=== PATIENT | female | born 1990 | race Caucasian/White ===

== ENCOUNTER 2022-05-22 14:48 | Emergency (ER) | payer BC, SELFPAY ==
[2022-05-22 14:50] VITALS: BP 137/91; PULSE 83; RESP 16; TEMP 36.6; O2SAT 99; BMI 42.0
[2022-05-22 14:53] VITALS: BP 137/91; PULSE 83; RESP 16; TEMP 36.6; O2SAT 99
--- NOTE | 2022-05-22 15:31 | EDS_ITS ---
HPI HPI - GI History of Present Illness Chief Complaint: Nausea/Vomiting/Diarrhea Informant: patient Abdominal Pain/Flank Pain Onset: Weeks (2) Context: Gradual Onset Timing: Intermittent Quality: Sharp Location: RUQ Worsened by: Food Relieved by: Nothing Nausea/Vomiting/Emesis GI Symptom: Positive for Nausea and Vomiting Quality: Positive for Nonbilious; Negative for Blood streaks, Coffee ground or Hematemesis Diarrhea/Melena/Hematochezia GI Symptom: Positive for Diarrhea; Negative for Melena or Hematochezia Associated Symptoms Associated Symptoms: Negative for Dysuria, Frequency or Hematuria LMP: Last month Narrative Narrative: Patient presents with right upper quadrant abdominal pain that has been intermittent for the past 2 weeks. Patient states it is worse after she eats. Patient states she has been to the emergency department at another facility twice in the last 2 weeks. Patient states her primary care physician told her to come to the emergency department to be admitted to the hospital. Patient states she has a HIDA scan scheduled in 3 days. Patient has not seen a surgeon for this. Patient states the pain radiates from her right upper quadrant into her back. Patient denies any hematemesis or coffee-ground emesis. Patient denies any melena or hematochezia. Patient denies any urinary complaints. PFSH PFSH Home Medications fexofenadine-pseudoephedrine ER 180 mg-240 mg tablet,ext.release 24 hr (Marah- D 24 Hour) 1 tab.sr PO DAILY 07/21/14 [History Last Taken Unknown] alprazolam 0.5 mg tablet 1 tab PO TID PRN Anxiety 05/22/22 [History Last Taken Unknown] hydrocodone-acetaminophen 5-325mg 5mg-325mg 1 tab PO Q6H PRN PRN Pain 3 days #10 TABLETS 05/22/22 [Rx Last Taken Unknown] ondansetron 4 mg disintegrating tablet 4 mg PO Q8H PRN PRN Nausea #10 tabs 05/22/22 [Rx Last Taken Unknown] rizatriptan 10 mg tablet 1 tab PO DAILY 05/22/22 [History Last Taken Unknown] varenicline 0.5 mg tablet 1 tab PO DAILY 05/22/22 [History Last Taken Unknown] venlafaxine 75 mg capsule,extended release 24 hr 1 cap PO DAILY 05/22/22 [History Last Taken Unknown] Allergy/AdvReac Type Severity Reaction Status Date / Time Sulfa (Sulfonamide Allergy Hives Verified 05/22/22 14:54 Antibiotics) escitalopram oxalate AdvReac Nausea/Vom/ Verified 05/22/22 14:54 [From Lexapro] Diarrhea Surgical History (Updated 05/22/22 @ 15:[address] Abdi Ford, ) Hx of tonsillectomy Social History Smoking Status: Never smoker ROS ROS ED Constitutional Constitutional ED: Denies chills or fever(s) Eyes Eyes: Denies blurry vision or change in vision ENT ENT ED: Denies rhinorrhea or sore throat Cardiovascular Cardiovascular: Denies chest pain or palpitations Respiratory/Chest Respiratory/Chest: Denies cough or dyspnea Gastrointestinal Gastrointestinal: Reports abdominal pain, diarrhea, nausea and vomiting Genitourinary Genitourinary ED: Denies dysuria or hematuria Musculoskeletal Musculoskeletal: Reports back pain Integumentary Denies abscess or rash Neurologic Neurologic: Reports headache(s); Denies weakness Allergic/Immunologic Allergic/Immunologic ED: Denies mouth swelling or urticaria EXAM Physical Exam Const Vital Signs: 05/22/22 14:50 05/22/22 14:53 Temperature 97.9 F 97.9 F Temperature Source Temporal Temporal Pulse Rate 83 83 Respiratory Rate 16 16 Blood Pressure 137/91 H 137/91 H Blood Pressure Mean 106 106 Pulse Ox 99 99 Oxygen Delivery Method Room Air Room Air Positive well nourished, well developed and obese General Appearance ED: well developed and NAD Nutritional Appearance: obese HEENT Reports moist mucous membranes Neck supple and no JVD Resp normal respiratory effort and clear to auscultation bilaterally Cardio regular rate, regular rhythm and no murmurs GI normal to inspection, nondistended, normoactive bowel sounds Palpation: soft and tender RUQ and Trimble's sign; Negative for guarding or rebound tenderness present Extremity normal to inspection General Extremety ED: Negative for edema or tenderness General Extremity: Negative for edema Neuro oriented x3, CN's II-XII intact bilaterally and no sensory deficits noted Sensorium / Orientation: alert Motor Exam: strength 5/5 throughout Psych mental status grossly normal Skin no rashes or lesions noted MDM MDM MDM Narrative Medical decision making narrative: Patient was given IV fluids, morphine, and Zofran. CBC was within normal limits. Comprehensive metabolic profile was normal. Lipase was normal. Serum hCG was negative. Urinalysis was obtained. There is no evidence of urinary tract infection or hematuria. Gallbladder ultrasound was obtained. There is no evidence of cholecystitis or cholelithiasis. This was interpreted by the radiologist and reviewed by myself. Patient is feeling better on reevaluation. Patient was instructed to follow-up with her primary care physician as scheduled. Patient was instructed to follow-up with her outpatient HIDA scan as scheduled. Patient was given referral to Dr. Dobson for general surgery. Patient understood and was agreeable with the plan. All questions were answered. Lab Data Attestation: I reviewed the patient's lab results. Labs: Laboratory Results - last 24 hr 05/22/22 05/22/22 05/22/22 15:15 15:15 15:15 WBC 8.5 RBC 4.47 Hgb 13.2 Hct 39.6 MCV 88.6 MCH 29.5 MCHC 33.3 RDW Std Deviation 41.5 RDW Coeff of [place] 12.7 Plt Count 295 MPV 10.5 Immature Gran % (Auto) 0.200 Neut % (Auto) 63.1 Lymph % (Auto) 24.1 [place] % (Auto) 6.0 Eos % (Auto) 5.9 H Baso % (Auto) 0.7 Absolute Neuts (auto) 5.4 Absolute Lymphs (auto) 2.06 Nucleated RBC % 0 Sodium 138 Potassium 3.9 Chloride 109 H Carbon Dioxide 25.0 Anion Gap 4 L BUN 7 Creatinine 0.86 Estim Creat Clear Calc 91.33 Est GFR (MDRD) Af Amer 98 Est GFR (MDRD) Non-Af 81 BUN/Creatinine Ratio 8.1 L Glucose 85 Calcium 9.3 Total Bilirubin 1.10 H AST 34 ALT 46 Alkaline Phosphatase 66 Total Protein 7.1 Albumin 3.9 Globulin 3.2 Albumin/Globulin Ratio 1.2 Lipase 93 Serum , Qual NEGATIVE Urine Color Urine Clarity Urine pH Ur Specific [place] Urine Protein Urine Glucose (UA) Urine Ketones Urine Occult Blood Urine Nitrite Urine Bilirubin Urine Urobilinogen Ur Leukocyte Esterase Urine RBC Urine WBC Ur Squamous Epith Cells Urine Bacteria Urine Mucus 05/22/22 16:34 WBC RBC Hgb Hct MCV MCH MCHC RDW Std Deviation RDW Coeff of [place] Plt Count MPV Immature Gran % (Auto) Neut % (Auto) Lymph % (Auto) [place] % (Auto) Eos % (Auto) Baso % (Auto) Absolute Neuts (auto) Absolute Lymphs (auto) Nucleated RBC % Sodium Potassium Chloride Carbon Dioxide Anion Gap BUN Creatinine Estim Creat Clear Calc Est GFR (MDRD) Af Amer Est GFR (MDRD) Non-Af BUN/Creatinine Ratio Glucose Calcium Total Bilirubin AST ALT Alkaline Phosphatase Total Protein Albumin Globulin Albumin/Globulin Ratio Lipase Serum , Qual Urine Color Yellow Urine Clarity Clear Urine pH 6.0 Ur Specific [place] 1.020 Urine Protein Negative Urine Glucose (UA) Normal Urine Ketones 50 H Urine Occult Blood Negative Urine Nitrite Negative Urine Bilirubin Negative Urine Urobilinogen 1 H Ur Leukocyte Esterase Negative Urine RBC 0 SEEN Urine WBC 0-5 SEEN Ur Squamous Epith Cells 0-5 SEEN Urine Bacteria 1+ Urine Mucus 1+ Radiography Diagnostic Testing: Clinical Impression(s) from Imaging Studies Gallbladder Ultrasound 05/22/22 15:36 IMPRESSION: No acute findings in the right upper quadrant. Electronically Signed: Marya Felix MD at 18:18 EDT Reading Location ID and State: [id number] / Tel , Service support , Discharge Plan Triage Chief Complaint: Nausea/Vomiting/Diarrhea Other Complaint: Abd Pain ED Provider: Abdi Ford Dx/Rx/DC Orders Clinical Impression: Right upper quadrant abdominal pain, Nausea and vomiting Instructions: ED Abdominal Pain Unkn Cause Fem Prescriptions: New hydrocodone-acetaminophen [hydrocodone-acetaminophen] 5-325 mg tablet 1 tab PO Q6H PRN PRN (Reason: Pain) 3 Days Qty: 10 0RF ondansetron [ondansetron] 4 mg tablet,disintegrating 4 mg PO Q8H PRN PRN (Reason: Nausea) Qty: 10 0RF No Action fexofenadine-pseudoephedrine [Marah-D 24 Hour] 1 TAB.SR tablet extended release 24 hr 1 tab.sr PO DAILY venlafaxine 75 mg capsule,extended release 24hr 1 cap PO DAILY Label Comments: TAKE 1 CAPSULE BY MOUTH EVERY DAY rizatriptan 10 mg tablet 1 tab PO DAILY alprazolam 0.5 mg tablet 1 tab PO TID PRN (Reason: Anxiety) Label Comments: TAKE 1 TABLET 3 TIMES A DAY BY ORAL ROUTE NEEDED. varenicline 0.5 mg tablet 1 tab PO DAILY Primary Care Provider: ESTRADA FERMIN Referrals: Bubba Dobson MD [Med Staff - Active Staff] - 5-7 Days Ramiro Lloyd MD [NON-STAFF] - Keep Stefani appointment Disposition Disposition: Home, Self Care
--- NOTE | 2022-05-22 15:36 | US_ITS ---
EXAM: US ABDOMEN LIMITED, RIGHT UPPER QUADRANT CLINICAL INDICATION: PAIN TECHNIQUE: Real-time ultrasound of the right upper quadrant with image documentation. This report was created using [employer] report generation technology. COMPARISON: None. FINDINGS: LIVER: Liver is normal in size and echogenicity. No focal lesion. No intrahepatic biliary ductal dilation. GALLBLADDER: Unremarkable. No shadowing gallstone. No gallbladder wall thickening is demonstrated. No pericholecystic fluid. Negative sonographic Trimble''s sign. COMMON BILE DUCT: Unremarkable as visualized. The proximal common bile duct is within normal limits for the patient''s age. PANCREAS: Unremarkable as visualized. No focal abnormality is demonstrated in the pancreas. No pancreatic ductal dilatation. RIGHT KIDNEY: Right kidney is normal in size and echogenicity measuring 11.2 x 3.9 x 4.6 cm. Renal cortical thickness is normal. No mass, stone, or hydronephrosis. US/Gallbladder IMPRESSION: No acute findings in the right upper quadrant. Electronically Signed: Marya Felix MD at 18:18 EDT Reading Location ID and State: [id number] / Tel , Service support ,
[2022-05-22] MEDS: 0.9% Normal Saline 1,000 ML 1000 ML IV (15:47)
[2022-05-22] MEDS: Morphine 4 MG/ML Syringe IV (15:47)
[2022-05-22] MEDS: Ondansetron 4 MG/2 ML Vial IV (15:48)
[2022-05-22 16:01] LABS: Absolute Lymphocyte Count 2.06 X10^3/uL (0.83-4.51); Absolute Neutrophil Count 5.4 X10^3/uL (2.0-7.7); Basophil# 0.06 X10^3/uL; Basophil% 0.7 % (0-1); Eosinophils% 5.9 % (0-5); Hematocrit 39.6 % (37-47); Hemoglobin 13.2 g/dL (12.0-15.0); Lymphocyte # 2.06 X10^3/ul (0.83-4.51); Lymphocyte % 24.1 % (19-41); Mean Corp Hgb Conc 33.3 g/dL (32-36); Mean Corpuscular Hgb 29.5 pg (27.0-32.0); Mean Corpuscular Volume 88.6 fL (81-99); Mean Platelet Vol. 10.5 fl (6.2-12.0); Monocyte# 0.51 X10^3/uL; NRBC Flagged by Analyzer 0 % (0-5); Neutrophil # 5.39 X10^3/uL (2.7-7.7); Neutrophil % 63.1 % (47-70); Platelet Count 295 K/mm3 (150-450); RBC Distribution Width CV 12.7 % (11.6-14.6); RBC Distribution Width SD 41.5 fl (35.1-43.9); Red Blood Count 4.47 M/mm3 (4.2-5.4); White Blood Count 8.5 K/mm3 (4.4-11.0)
[2022-05-22 16:15] LABS: Internal QC Validated? YES +Cl - CLEAR BKGD; Pregnancy, Serum, hCG Quali. NEGATIVE Negative
[2022-05-22 16:18] LABS: ALB/GLOB Ratio 1.2 RATIO (0.9-2.4); AST(SGOT) 34 U/L (15-37); Alanine Aminotransfer ALT/SGPT 46 U/L (13-56); Albumin, Serum 3.9 g/dL (3.2-5.0); Alkaline Phosphatase 66 U/L (45-117); Anion Gap 4 (5-15); BUN 7 mg/dL (7-18); BUN/Creat Ratio 8.1 RATIO (10-20); Calcium,Total 9.3 mg/dL (8.5-10.1); Chloride 109 mmol/L (98-107); Creatinine, Serum 0.86 mg/dL (0.55-1.02); EST Glomerular Filtration Rate 81 mL/min (>60); Est Glom Filt Rate - Afr Amer 98 mL/min (>60); Estimated Creatinine Clearance 91.33 ml/min; Globulin 3.2 g/dL (2.2-4.2); Glucose 85 mg/dL (74-106); Lipase 93 U/L (73-393); Potassium 3.9 mmol/L (3.5-5.1); Protein, Total 7.1 g/dL (6.4-8.2); Sodium Level 138 mmol/L (136-145)
[2022-05-22 16:45] LABS: Red Blood Cells-Urine 0 SEEN /hpf (0-5)
[2022-05-22 16:48] LABS: Color, Urine Yellow (Yellow); Glucose, Dipstick Normal (Normal); Ketone-Dipstick 50 mg/dl (Negative); Leukocyte Esterase-Dipstick Negative /ul (Negative); Nitrite-Dipstick Negative (Negative); Occult Blood-Urine Negative /ul (Negative); Protein-Dipstick Negative (Negative); Urine Bilirubin Dipstick Negative (Negative); Urine Clarity Clear (Clear); Urine Urobilinogen 1 mg/dl (Normal)
[2022-05-22 16:49] VITALS: RESP 16
[2022-05-22 17:25] LABS: Bacteria 1+ /hpf (None Seen); Mucous, Urine 1+ /hpf (<or=2+); Squamous Epithelial Cells - UA 0-5 SEEN /hpf (5-10); White Blood Cells 0-5 SEEN /hpf (0-5)
[2022-05-22 18:40] VITALS: RESP 16
[2022-05-22 18:49] VITALS: RESP 16
== END 2022-05-22 18:56 | disposition home or self-care (01) ==
PROVIDERS: Emergency Provider Emergency Medicine; Visit Provider Emergency Medicine
DX: R10.11 Right upper quadrant pain (principal); R11.2 Nausea with vomiting, unspecified; R19.7 Diarrhea, unspecified
CPT/HCPCS: 76705; 80053; 81001; 83690; 84703; 85025; 96361; 96374; 96375; 99283; J7030; A4216; J2405

== ENCOUNTER 2022-07-05 07:18 | Day surgery (SDC) | payer BC, SELFPAY ==
--- NOTE | 2022-07-05 | GASB_PTH ---
PATIENT: DESTIN MAN LOC: EN U#:[id number] AGE/SX: 31/F ROOM: RE07/05/[address]: Dr. Bubba Dobson MD : 1990 BED: DIS: 07/05/2022 SPEC #: [id number] RECD: 07/05/22 11:51 STATUS: WAI KWONG #: [id number] EVELIA: 07/05/22 00:[address]: Bubba Dobson DEPT: SURGICAL PATHOLOGY RECD BY: Zachery Lloyd Tissues: A - Gastric mucous membrane B - Gastric mucous membrane C - Gastric mucous membrane Procedures: Special Stain Group II Surgery Specimen Level IV Alcian Blue/PAS (control) HEADER OPERATION: EGD ([facility]), biopsy PRE-OP DIAGNOSIS: Acid reflux, diarrhea, constipation, nausea, vomiting, RUQ abdominal pain, epigastric abdominal pain TISSUE SUBMITTED: A ? Antral ulcer biopsy, B ? Antrum biopsy for histo and H. pylori, C ? Gastroesophageal junction biopsy MICROSCOPIC DIAGNOSIS A. Antral ulcer, biopsy: Mild gastritis. See microscopic description. B. Antrum, biopsy: Mild gastritis. See microscopic description and comment. C. Gastroesophageal junction, biopsy: Fragments of gastroesophageal mucosa with chronic inflammation. Intestinal metaplasia (goblet cell metaplasia) not identified. See comment. SJ:rg 07/06/2022 COMMENT B. The results of immunohistochemistry for Helicobacter pylori will be reported separately ([id number]). C. Alcian blue/PAS stain with matched control is used in the evaluation of the specimen. MICROSCOPIC DESCRIPTION Slides are reviewed. A & B. The specimen shows fragments of gastric mucosa with chronic inflammatory cell infiltrates in the lamina propria consisting of lymphocytes and plasma cells, consistent with mild chronic gastritis. GROSS DESCRIPTION A - Received in fixative is one container labeled with the patient's name and designated antral ulcer biopsy. The specimen consists of two irregular fragments of light vang soft tissue that in aggregate measure 0.5 x 0.3 x 0.1 cm. The specimen is totally submitted in one cassette. B - Received in fixative is one container labeled with the patient's name and designated antrum biopsy. The specimen consists of two irregular fragments of light vang soft tissue that in aggregate measure 0.6 x 0.3 x 0.1 cm. The specimen is totally submitted in one cassette. C - Received in fixative is one container labeled with the patient's name and designated GE junction biopsy. The specimen consists of multiple irregular fragments of light vang soft tissue that in aggregate measure 0.8 x 0.5 x 0.1 cm. The specimen is totally submitted in one cassette. / SJ:tamiko 07/05/2022 TC:3 CPT: 67838 x3, 36964
[2022-07-05 07:48] LABS: Internal QC Validated? YES +Cl - CLEAR BKGD; Pregnancy, Urine Negative Negative
[2022-07-05 07:57] VITALS: BP 133/92; PULSE 64; RESP 16; TEMP 36.5; O2SAT 98; BMI 41.8
--- NOTE | 2022-07-05 08:09 | PCM.HP.BLA ---
History and Physical Date of Admission: 07/05/22 Date of Service:? 06/01/22 MR#: [id number] Acct: [id number] Name:DESTIN PETERS Rep #: [id number] : 1990 ? ? Provider: Dr. Bubba Dobson MD Age/Sex:? 31/F ? ? Location: [facility] Status: Signed Intake Vital Signs ? 05/22/2214:50 06/01/2209:02 Height 5 ft 7 in 5 ft 7 in Weight: ? 275 lb 6 oz BMI ? 43.1 BP ? 133/88 H Blood Pressure Location ? Rt brachial Position ? Sitting Respiration ? 16 Pulse ? 78 Pulse Source ? Monitor Temp ? 98 F Temp Source ? Temporal Pulse Oximetry (%) ? 98 Oxygen Delivery Method ? room air Intake Visit Reasons:?GALLBLADDER/HIDA SCAN 05/23 Chief Complaint: Gallbladder/Hida Scan Exploration Driller Required: No Is patient in pain?: No Allergies Sulfa (Sulfonamide Antibiotics) Allergy (Verified 06/01/22 09:03) Hivesescitalopram oxalate [From Lexapro] Adverse Reaction (Verified 06/01/22 09:03) Nausea/Vom/Diarrhea Medications fexofenadine-pseudoephedrine ER 180 mg-240 mg tablet,ext.release 24 hr (Marah-D 24 Hour) 1 tab.sr PO DAILY 07/21/14 [History Confirmed 06/01/22] alprazolam 0.5 mg tablet 1 tab PO TID PRN Anxiety 05/22/22 [History Confirmed 06/01/22] rizatriptan 10 mg tablet 1 tab PO DAILY 05/22/22 [History Confirmed 06/01/22] varenicline 0.5 mg tablet 1 tab PO DAILY 05/22/22 [History Confirmed 06/01/22] venlafaxine 75 mg capsule,extended release 24 hr 1 cap PO DAILY 05/22/22 [History Confirmed 06/01/22] PFSH Surgical History?(Updated 06/01/22 @ 09:02 by Cristy Saturday) Hx of tonsillectomy Social History? Smoking Status:? Never smoker HPI HPI HPI: DESTIN BASSETT, is a 31 F who presents to the office today for who presents with evaluation of right upper quadrant pain which she states has been present off and on since September, but more consistently for the past couple of weeks.? They are referred for surgical consultation from emergency medicine after recent visit on 05/22/2022. ? Pain is described as stabbing in the right upper quadrant and then radiating to the left towards her back.? This pain was initially postprandial in onset, but now is present all the time and intensifies after eating any foods.? Pain is associated with some nausea and vomiting of foodstuffs/stomach acid.? Patient reports approximately 12 pounds weight loss in the last 4 days due to this nausea and vomiting.? She denies any sick contacts at home or at work.? Outside of these last couple of weeks, patient denies any prior such symptoms.? Additional symptoms include: Some increased fatigue and bloating.? Regarding her bowel habits, she states that she has generally normal bowel movements but experiences occasional constipation and diarrhea with diarrhea coming more frequently than constipation?generally speaking.? However of late, after taking some pain medication following her ER visit, she is experiencing some constipation.? During patient's ER visit she underwent right upper quadrant ultrasound which did not find evidence of gallstones, gallbladder wall thickening, pericholecystic fluid, and there was a negative Trimble sign.? Subsequently she underwent HIDA imaging at outside facility, but the report of this study was prompt hepatic uptake with gallbladder filling and an ejection fraction measured at 77%. Patient does have a established history of reflux which she states became an issue following her tonsillectomy remotely.? She reports that she was continuously placed on Zantac until that medication was taken off the market and then was prescribed omeprazole due to persistent vomiting.? She has never undergone an EGD evaluation. Patient's family history is remarkable for colon cancer in both her maternal and paternal grandfathers.? Both were diagnosed in their 60s.? She also notes that her brother deals with kidney stones.? Her father required cholecystectomy for gallstones and has a diagnosis of irritable bowel syndrome. Previous work-up has included: [Tests]. ROS General General: Yes weight change and fatigue; No appetite, colon cancer, breast cancer or weakness HEENT HEENT: No difficulty swallowing, eye injury, eye surgery, swollen glands or hoarseness Endo Endocrine: No thyroid disease, diabetes mellitus, thyroid cancer, Hair loss, heat intolerance or cold intolerance Skin Skin: No rash or changing moles Musc Musculoskeletal: No back problems, arthritis, rheumatoid arthritis, gout or joint pain Cardio Cardiovascular: No murmur, pacemaker, heart disease, atrial fibrillation, high blood pressure, heart attack, heart stent, palpitations, shortness of breat with exertion or chest pain Psych Psychiatric: Yes depression and anxiety; No hearing voices Resp Respiratory: No shortness of breath, No sleep apnea, No cough, No COPD, No asthma, No emphysema and No wheezing Gastro Gastrointestinal: Yes abdominal pain, Yes nausea or vomiting, Yes diarrhea, Yes constipation, No blood in stool, Yes acid reflux, No hemorrhoids, No ulcers, Yes gallbladder problem and No black,tarry stools Js Hematologic: No blood thinners, No blood disorders, No bleeding, No anemia and No blood clots Neuro Neurologic: No system reviewed and no additional complaints, except as documented, No as per HPI, No abnormal gait, No abnormal hearing, No abnormal movements, No abnormal speech, No behavioral changes, No burning sensations, No confusion, No convulsions, No disequilibrium, No dizziness, No localized weakness, No frequent falls, No headache(s), No lack of coordination, No loss of vision, No memory loss, No numbness, No other visual disturbances, No radicular pain, No restless legs, No sensory deficit, No syncope, No tingling, No tremor(s), No weakness and No other Exam Const General: cooperative and no acute distress Orientation: alert, awake and oriented x3 Resp Effort & Inspection: normal respiratory effort Auscultation: no rales, no rhonchi and no wheezes Cardio Rate: regular rate Rhythm: regular rhythm Heart Sounds: S1 normal and S2 normal GI Inspection: obesity, no scars and striae Palpation: soft, no hernias and tender in the epigastrum (Predominantly epigastric with some voluntary guarding) and in the RUQ Assessment and Plan Assessment and Plan (1) Acid reflux: ?Status:?Acute (2) Diarrhea: ?Status:?Acute (3) Constipation: ?Status:?Acute (4) Nausea & vomiting: ?Status:?Acute (5) Right upper quadrant abdominal pain: ?Status:?Acute (6) Epigastric abdominal pain: ?Status:?Acute Plan This is a 31-year-old female who presents with a 2 to 3-week history of right upper quadrant/epigastric abdominal discomfort and associated bloating as well as nausea and vomiting.? Notable work-up to date includes a right upper quadrant ultrasound that was completely normal for its gallbladder findings and a HIDA scan that was equally normal for both uptake time and ejection fraction calculation.? I have reviewed these results in detail with Ms. Bassett and informed her this makes the likelihood that her abdominal discomfort stems from a gallbladder problem very low.? Have also shared with her the differential includes possible Sixto factor pylori, peptic ulcer disease, refractory reflux symptoms, IBS, other? At this point I recommend proceeding with a diagnostic EGD.? This will allow us to perform random biopsies to assess for possible helical back to pylori, assess for any ulcer disease, or any structural abnormalities that may be causing refractory reflux including hiatal hernia.? Patient is excepting of this recommendation and we will plan to proceed as described under local MAC. I have re-examined the patient. There are no clinical changes since date of exam. Patient states that she had another bout of abdominal pain yesterday that was primarily epigastric and retrosternal. She denies any questions related to her planned procedure today. Therefore we will proceed to the endoscopy suite for EGD under local MAC as scheduled.
--- NOTE | 2022-07-05 08:30 | IMM_PTH ---
PATIENT: DESTIN MAN LOC: [facility]Z U#:[id number] AGE/SX: 31/F ROOM: RE07/05/[address]: Dr. Bubba Dobson MD : 1990 BED: DIS: 07/05/2022 SPEC #: [id number] RECD: 07/05/22 14:25 STATUS: WAI VARGHESE #: [id number] EVELIA: 07/05/22 08:[address]: Bubba Dobson DEPT: IMMUNOHISTOCHEMISTRY RECD BY: Lizabeth Martinez Tissues: B - Stomach, NOS Procedures: H Pylori (initial) PHYSICIAN & INSTITUTION [place] [id number] SPECIMEN INFORMATION: Tissue Source: B ? Antrum biopsy Clinical Info: Acid reflux, diarrhea, constipation, nausea, vomiting, RUQ abdominal pain Specimen Number: [id number] CPT code: 98287 METHODOLOGY: Deparaffinized sections of prefer/formalin-fixed tissue or PAP/DQ stained slides are incubated with monoclonal/polyclonal antibodies/oligonucleotide probes. Localization is made via biotin free immunoperoxidase method. Appropriate controls are performed and reacted as expected. Results on target cell population are indicated in the following table: RESULTS: ANTIBODY / CLONE RESULT Block B H Pylori (polyclonal) negative These tests were developed and their performance characteristics determined by [facility]. They may not have been cleared or approved by the U.S. Food and Drug Administration. The FDA has determined that such clearance or approval is not necessary. The above immunohistochemical/dualISH markers are ordered and reviewed by the Pathologist. INTERPRETATION: B. Antrum, biopsy: Negative for Helicobacter pylori organisms. SJ:tamiko 07/06/2022
[2022-07-05 08:45] VITALS: BP 112/74; BP 133/92; PULSE 89; RESP 18; TEMP 37; O2SAT 95
[2022-07-05 08:50] VITALS: BP 117/79; BP 133/92; PULSE 69; RESP 18; O2SAT 95
--- NOTE | 2022-07-05 08:50 | OP.EGD_ITS ---
Patient Name: Yadira Bassett Procedure Date: 07/05/2022 8:03 AM Date of : 1990 Age: 31 Procedure: Upper GI endoscopy Indications: Epigastric abdominal pain, Suspected esophageal reflux, Abdominal bloating, Nausea Providers: Bubba Dobson MD Medicines: See the Anesthesia note for documentation of the administered medications Patient Profile: Refer to note in patient chart for documentation of history and physical. Complications: No immediate complications. Estimated blood loss: Minimal. Procedure: Pre-Anesthesia Assessment: - The heart rate, respiratory rate, oxygen saturations, blood pressure, adequacy of pulmonary ventilation, and response to care were monitored throughout the procedure. After obtaining informed consent, the endoscope was passed under direct vision. Throughout the procedure, the patient's blood pressure, pulse, and oxygen saturations were monitored continuously. The Endoscope was introduced through the mouth, and advanced to the third part of duodenum. The upper GI endoscopy was somewhat difficult due to the patient's respiratory instability (bronchospasm). Successful completion of the procedure was aided by having anesthesiology staff obtain IV access. Scope In: 8:14:59 AM Scope Out: 8:39:23 AM Total Procedure Duration Time 0 hours 24 minutes 24 seconds Findings: The first portion of the duodenum, second portion of the duodenum and examined duodenum were normal. No biopsies or other specimens were collected for this exam. One non-bleeding superficial gastric ulcer with no stigmata of bleeding was found in the gastric antrum. The lesion was 3 mm in largest dimension. Biopsies were taken with a cold forceps for histology. Estimated blood loss was minimal. Estimated blood loss was minimal. The Z-line was irregular and was found 36 cm from the incisors. Biopsies were taken with a cold forceps for histology. Estimated blood loss was minimal. Localized mildly erythematous mucosa without bleeding was found in the gastric antrum. Biopsies were taken with a cold forceps for Helicobacter pylori cultures. Impression: - Normal first portion of the duodenum, second portion of the duodenum and examined duodenum. No specimens collected. - Non-bleeding gastric ulcer with no stigmata of bleeding. Biopsied. - Z-line irregular, 36 cm from the incisors. Biopsied. - Erythematous mucosa in the antrum. Biopsied. Recommendation: - Discharge patient to home (via wheelchair). - Resume regular diet today. - Continue present medications. - Await pathology results. - Telephone my office for pathology results in 1 week. Procedure Code(s): --- Professional --- 04734, Esophagogastroduodenoscopy, flexible, transoral; with biopsy, single or multiple Diagnosis Code(s): --- Professional --- K25.9, Gastric ulcer, unspecified as acute or chronic, without hemorrhage or perforation K22.8, Other specified diseases of esophagus K31.89, Other diseases of stomach and duodenum R10.13, Epigastric pain R14.0, Abdominal distension (gaseous) R11.0, Nausea CPT copyright 2017 [employer]. All rights reserved. The codes documented in this report are preliminary and upon surgical instrument maker review may be revised to meet current compliance requirements. Bubba Dobson MD 07/05/2022 8:49:38 AM This report has been signed electronically. Number of Addenda: 0 Note Initiated On: 07/05/2022 8:03 AM
[2022-07-05 08:55] VITALS: BP 119/85; BP 133/92; PULSE 65; RESP 18; O2SAT 98
[2022-07-05 09:00] VITALS: BP 117/81; BP 133/92; PULSE 64; RESP 18; TEMP 36.4; O2SAT 95
[2022-07-05 09:11] VITALS: BP 133/92
== END 2022-07-05 09:25 | disposition home or self-care (01) ==
LOC: EN 07:24 → AC 07:25
PROVIDERS: Anesthesiology; Visit Provider Surgery
PROC: 0DJ08ZZ Inspection of Upper Intestinal Tract, Via Natural or Artificial Opening Endoscopic (ICD-10-PCS; CPT 43235; principal; 2022-07-05 08:25)
DX: K25.9 Gastric ulcer, unspecified as acute or chronic, without hemorrhage or perforation (principal); K21.9 Gastro-esophageal reflux disease without esophagitis; Z80.0 Family history of malignant neoplasm of digestive organs; R11.0 Nausea; R10.11 Right upper quadrant pain; R10.13 Epigastric pain; K31.89 Other diseases of stomach and duodenum; R14.0 Abdominal distension (gaseous); R19.7 Diarrhea, unspecified; K59.00 Constipation, unspecified
CPT/HCPCS: 43239; 81025; 88305; 88313; 88342; J7120; J2405